=== PATIENT | female | born 2000 | race Two or more races ===

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

== ENCOUNTER 2020-06-10 13:09 | Emergency (ER) | payer OTHER ==
[2020-06-10 13:22] VITALS: BMI 30.1
[2020-06-10] MEDS ORDERED: ACETAMINOPHEN 325 MG TABLET (FP) PO ONE (14:32)
[2020-06-10] MEDS ORDERED: LACTATED RINGERS SOLUTION 1000 ML INFUS.BAG IV ONE (14:45)
[2020-06-10 15:11] LABS: BASO % 0.4 % (0-2.0); EOS % 1.6 % (0-4.5); HEMATOCRIT 33.7 % (32.4-45.2); HEMOGLOBIN 11.3 GM/dL (10.7-15.3); LYMPH % 37.2 % (8-40); MCH 30.1 pg (25.7-33.7); MCHC 33.6 g/dl (32.0-36.0); MEAN CELL VOLUME 89.6 fl (80-96); MEAN PLT VOLUME 8.3 fl (7.5-11.1); MONO % 6.8 % (3.8-10.2); PLATELET COUNT 473 K/MM3 (134-434); RBC 3.76 M/mm3 (3.60-5.2); RDW 14.1 % (11.6-15.6); WHITE BLOOD COUNT 8.5 K/mm3 (4.0-10.0)
[2020-06-10 15:16] LABS: INR 1.04 (0.83-1.09); PROTHROMBIN TIME (PATIENT) 12.6 SEC (9.7-13.0)
[2020-06-10 15:19] LABS: ACTIVATED PTT 34.4 SECONDS (25.2-36.5)
[2020-06-10 15:32] LABS: POTASSIUM 4.3 mmol/L (3.5-5.1)
[2020-06-10 15:33] LABS: CALCIUM 8.9 mg/dL (8.5-10.1)
[2020-06-10 15:35] LABS: ALBUMIN 3.4 g/dl (3.4-5.0); BLOOD UREA NITROGEN 5.7 mg/dL (7-18)
[2020-06-10 15:37] LABS: CREATININE 0.7 mg/dL (0.55-1.3)
[2020-06-10 15:38] LABS: BILIRUBIN,TOTAL 0.2 mg/dL (0.2-1); TOT PROT 6.9 g/dl (6.4-8.2)
[2020-06-10] MEDS ORDERED: ACETAMINOPHEN 325 MG TABLET (FP) ONE (16:25)
[2020-06-10 18:01] VITALS: BP 110/56; PULSE 70; TEMP 98.6
== END 2020-06-10 17:45 | disposition home or self-care (01) ==
LOC: JER 13:09
DX: O00.90 Unspecified ectopic pregnancy without intrauterine pregnancy (principal)
CPT/HCPCS: 36415; 76817-TC; 80053; 84702; 85025; 85610; 85730; 86850; 86900; 86901; 93005; 93010; 99285-25